=== PATIENT | male | born 1940 | race Caucasian/White ===

== ENCOUNTER 2016-06-25 12:38 | Emergency (ER) | payer MEDICARE ==
[~2016-06-25 12:38] MED LIST: ASPI81TA82 PO; BP med; CHOL50006 PO; CYCL1PAK PO; GABA100C4 PO; LORTA10 PO; METH1TAB29 PO; PLAV75TA PO
[2016-06-25 12:45] VITALS: BP 191/113; PULSE 72; RESP 20; TEMP 97.9; O2SAT 98
[2016-06-25] MEDS ORDERED: PLAV75TA29 PO (12:50)
[2016-06-25] MEDS ORDERED: UNKNOWN MEDS (12:50)
[2016-06-25] MEDS ORDERED: LISI2.5T3 PO (12:50)
--- NOTE | 2016-06-25 12:57 | PD ---
HPI Chief Complaint: Chest Pain Time Seen by Provider: 12:53 Travel History International Travel<30 days: No Contact w/Intl Traveler<30days: No Traveled to known affect area: No History of Present Illness HPI This is a 76-year-old male who presents to the emergency department with chest pain that started at 2 AM waking him up from sleep described as a sharp stabbing pain in the right chest radiating to the back right next to his scapula associated with pain in his right neck. He says at that time he had the pain he was unable to move his right arm. Symptoms have been constant and he tried not to move throughout the night in order to alleviate them. He says they get worse when he moves from [id number] and when he moves his neck. He denies any associated shortness of breath, nausea or diaphoresis. He reports his pain is still an 8 out of 10. He's never had pain like this before. He does have a history of heart disease and has one stent. He says this feels nothing like his prior heart attack. He does also have a history of surgery on his neck and back but he similarly says this doesn't feel like musculoskeletal pain to him. PFSH Past Medical History Hx Anticoagulant Therapy: Yes (PLAVIX) Arthritis: Yes Heart Rhythm Problems: Yes Cancer: Yes (PROSTAT,SKIN) Cardiac Catheterization: Yes Cardiovascular Problems: Yes High Cholesterol: Yes Chemotherapy: No Chest Pain: Yes Diabetes: No Diminished Hearing: Yes Endocrine: No Genitourinary: Yes (FREQUENT VOIDING.) Hypertension: Yes Immune Disorder: No Implanted Vascular Access Dvce: Yes Kidney Stones: No Musculoskeletal: Yes Neurologic: No Psychiatric: No Reproductive: No Respiratory: No Immunizations Current: Yes (shingles vaccine) Myocardial Infarction: Yes (2002) Radiation Therapy: No Sickle Cell Disease: No Past Surgical History Abdominal Surgery: Yes (APPI) Appendectomy: Yes Body Medical Devices: CARDIAC STENT Coronary Stent: Yes (2002) Genitourinary Surgery: Yes (BLOOD CLOT REMOVED FROM BLADDER, STENT PLACED.) Prostatectomy: Yes Other Surgery: Yes (HERNIA REPAIR X 2.) Social History Alcohol Use: Yes (occasionally) Tobacco Use: Yes (2 cigars per day) Substance Use: No Allergies-Medications (Allergen,Severity, Reaction): Coded Allergies: UNOBTAINABLE (Unverified , 3/16/17) PT STATES THAT HE HAS ALLERGIES BUT IS UNABLE TO RECALL AND DOES NOT HAVE A LIST Reported Meds & Prescriptions Reported Meds & Active Scripts Active Reported [Unknown Meds] Unknown Dose Lisinopril 2.5 Mg Tab Unknown Dose PO DAILY Plavix (Clopidogrel Bisulfate) 75 Mg Tab Unknown Dose PO DAILY Review of Systems Except as stated in HPI: all other systems reviewed are Neg Physical Exam Narrative GENERAL:Well appearing, no acute distress SKIN: Warm and dry. HEAD: Atraumatic. Normocephalic. EYES: Pupils equal and round. No injection or drainage. ENT: Moist mucous membranes NECK: Trachea midline. CARDIOVASCULAR: Regular rate and rhythm. No murmur appreciated. RESPIRATORY: Clear to auscultation. Breath sounds equal bilaterally. GASTROINTESTINAL: Abdomen soft, non-tender, nondistended. MUSCULOSKELETAL: No obvious deformities. NEUROLOGICAL: Awake and alert. No obvious cranial nerve deficits. Moving all extremities. PSYCHIATRIC: Appropriate mood and affect; insight and judgment normal. Data Data Last Documented VS Vital Signs Date Time Temp Pulse Resp B/P Pulse Ox O2 Delivery O2 Flow Rate FiO2 06/25/16 14:23 81 20 154/97 95 Nasal Cannula 06/25/16 13:22 2 06/25/16 12:45 97.9 Orders Electrocardiogram (06/25/16 12:53) Complete Blood Count With Diff (06/25/16 12:53) Comprehensive Metabolic Panel (06/25/16 12:53) Troponin I (06/25/16 12:53) Chest, Single Ap (06/25/16 12:53) Ecg Monitoring (06/25/16 12:53) Bilateral Bp Monitoring (06/25/16 12:53) Iv Access Insert/Monitor (06/25/16 12:53) Oximetry (06/25/16 12:53) Oxygen Administration (06/25/16 12:53) Sodium Chloride 0.9% Flush (Ns Flush) (06/25/16 13:00) Morphine Inj (Morphine Inj) (06/25/16 13:00) Labetalol Inj (Trandate Inj) (06/25/16 13:00) Cta Thor Abd Aorta W Iv C W3d (06/25/16 ) Iohexol 350 Inj (Omnipaque 350 Inj) (06/25/16 14:18) Labs Laboratory Tests Test 06/25/16 13:00 White Blood Count 9.8 TH/MM3 Red Blood Count 4.98 MIL/MM3 Hemoglobin 15.3 GM/DL Hematocrit 45.8 % Mean Corpuscular Volume 91.9 FL Mean Corpuscular Hemoglobin 30.8 PG Mean Corpuscular Hemoglobin 33.5 % Concent Red Cell Distribution Width 12.5 % Platelet Count 228 TH/MM3 Mean Platelet Volume 8.0 FL Neutrophils (%) (Auto) 70.7 % Lymphocytes (%) (Auto) 15.3 % Monocytes (%) (Auto) 10.9 % Eosinophils (%) (Auto) 1.5 % Basophils (%) (Auto) 1.6 % Neutrophils # (Auto) 6.9 TH/MM3 Lymphocytes # (Auto) 1.5 TH/MM3 Monocytes # (Auto) 1.1 TH/MM3 Eosinophils # (Auto) 0.1 TH/MM3 Basophils # (Auto) 0.2 TH/MM3 CBC Comment DIFF FINAL Differential Comment Sodium Level 141 MEQ/L Potassium Level 4.5 MEQ/L Chloride Level 106 MEQ/L Carbon Dioxide Level 27.2 MEQ/L Anion Gap 8 MEQ/L Blood Urea Nitrogen 20 MG/DL Creatinine 1.00 MG/DL Estimat Glomerular Filtration 72 ML/MIN Rate Random Glucose 83 MG/DL Calcium Level 9.0 MG/DL Total Bilirubin 0.7 MG/DL Aspartate Amino Transf 25 U/L (AST/SGOT) Alanine Aminotransferase 48 U/L (ALT/SGPT) Alkaline Phosphatase 69 U/L Troponin I LESS THAN 0.02 NG/ML Total Protein 7.0 GM/DL Albumin 3.9 GM/DL MDM Medical Decision Making Medical Screen Exam Complete: Yes Emergency Medical Condition: Yes Interpretation(s) EKG: Normal sinus rhythm, ST depressions in the lateral leads, LVH No leukocytosis Electrolytes are reassuring Troponin is normal Chest x-ray: Compensated cardiomegaly Last 24 hours Impressions Chest X-Ray 06/25/16 1253 Signed Impressions: Service Date/Time: June 13:01 - CONCLUSION: Compensated cardiomegaly otherwise negative. Manuel Gilliland MD FACR Aorta CTA 06/25/16 0000 Signed Impressions: Service Date/Time: June 13:46 - CONCLUSION: Calcific atherosclerotic coronary artery disease. Cardiomegaly. Mild atherosclerotic disease of the thoracic and abdominal aorta without evidence of aneurysmal enlargement, dissection or ulceration. Simple hepatic cyst. No other significant abnormalities. Alejandro Leos MD Differential Diagnosis Myocardial infarction, aortic dissection, costochondritis, thoracic radiculopathy, cervical radiculopathy Narrative Course This is a 76-year-old male who has a history of coronary artery disease who presents to the emergency department with atypical pain on the right chest and right neck, worse with movement, with difficulty getting comfortable overnight. On a monitor and an IV was established. Vital signs demonstrated hypertension. He was given a dose of IV labetalol with improvement in his blood pressure. Labs are obtained which demonstrate a normal troponin. CT a was obtained given his description of weakness in his right upper extremity which demonstrates coronary artery disease and atherosclerosis of the thoracic and abdominal aorta but no aortic dissection. I had a long conversation with the patient. Given his history of coronary artery disease I offered him serial cardiac enzymes and risk stratification in the hospital. He really didn't want to stay. I explained to him that there is a small chance that were missing a heart attack. In my heart, I think this is very unlikely given the patient's pain is very positional and seems to be musculoskeletal. Additionally it started at 2 AM and has been constant since then so his troponin should be elevated by now. Patient elected to be discharged and follow-up with his primary care physician in [place] which I think is reasonable. Diagnosis Primary Impression: Atypical chest pain Patient Instructions: General Instructions Additional Instructions: f you develop severe chest pain, shortness of breath, sweating, lightheadedness , dizziness or difficulty breathing return to the emergency department immediately. Followup with your bunch maker once you get home in [place] without fail. Med/Other Pt SpecificInfo: Prescription(s) given Scripts Tramadol 50 Mg Tab50 Mg PO Q6H PRN (PAIN) #10 TAB Prov:Radha Brambila MD 06/25/16 Disposition: 01 DISCHARGE HOME Condition: Stable Radha Brambila MD Jun 25, 2016 12:57
[2016-06-25] MEDS ORDERED: LABETALOL HCL 100 MG/20 ML VIAL IV PUSH ONE (13:00)
[2016-06-25] MEDS ORDERED: MORPHINE SULFATE 8 MG/ML INJ IV PUSH ONE (13:00)
[2016-06-25] MEDS ORDERED: SODIUM CHLORIDE 0.9% FLUSH 5 ML FLUSH IVF PRN (13:00)
[2016-06-25 13:13] LABS: AUTOMATED NEUTROPHIL # 6.9 TH/MM3 (1.8-7.7); BASOPHIL # 0.2 TH/MM3 (0-0.2); BASOPHIL % 1.6 % (0.0-2.0); EOSINOPHIL # 0.1 TH/MM3 (0-0.4); EOSINOPHIL % 1.5 % (0.0-4.0); HEMATOCRIT 45.8 % (39.0-51.0); HEMO FLAGS DIFF FINAL; LYMPH % 15.3 % (9.0-44.0); LYMPHOCYTE # 1.5 TH/MM3 (1.0-4.8); MEAN CELL VOLUME 91.9 FL (80.0-100.0); MEAN CORPUSCULAR HEMOGLOBIN 30.8 PG (27.0-34.0); MEAN CORPUSCULAR HGB CONC 33.5 % (32.0-36.0); MONO % 10.9 % (0.0-8.0); NEUT % 70.7 % (16.0-70.0); PLATELET COUNT 228 TH/MM3 (150-450); RED BLOOD COUNT 4.98 MIL/MM3 (4.50-5.90); RED CELL DISTRIBUTION WIDTH 12.5 % (11.6-17.2); WHITE BLOOD COUNT 9.8 TH/MM3 (4.0-11.0)
[2016-06-25 13:14] VITALS: O2SAT 98
--- NOTE | 2016-06-25 13:14 | RADHPO ---
EXAM DATE/TIME: 06/25/2016 13:01 [facility] COMPARISON: No previous studies available for comparison. INDICATIONS : Chest pain. MEDICAL HISTORY : Myocardial infarction. Hypercholesterolemia. Hypertension. SURGICAL HISTORY : Cardiac stent, canvas cutter ENCOUNTER: Initial ACUITY: 1 day PAIN SCORE: 10/10 LOCATION: Bilateral chest FINDINGS: The lungs are clear. The heart is minimally enlarged. The pulmonary vascularity is normal. There is n o evidence for infiltrate or failure. The portion of the bony skeleton visualized is unremarkable. CONCLUSION: Compensated cardiomegaly otherwise negative. Manuel Gilliland MD FACR on June 25, 2016 at 13:12 Board Certified Radiologist. This report was verified electronically.
[2016-06-25 13:19] LABS: CHLORIDE 106 MEQ/L (98-107); POTASSIUM 4.5 MEQ/L (3.5-5.1); SODIUM (NA) 141 MEQ/L (136-145)
[2016-06-25 13:22] VITALS: BP_SYST 147; BP_SYST 177; BP_DIAS 101; BP_DIAS 103; PULSE 65; RESP 20; O2SAT 96
[2016-06-25 13:22] LABS: ANION GAP 8 MEQ/L (5-15); BICARBONATE 27.2 MEQ/L (21.0-32.0); BLOOD UREA NITROGEN 20 MG/DL (7-18)
[2016-06-25 13:25] LABS: ALT (GPT) 48 U/L (12-78); AST (GOT) 25 U/L (15-37); GLOMERULAR FILTRATION RATE 72 ML/MIN (>89)
[2016-06-25 13:27] LABS: TOTAL BILIRUBIN ADULT 0.7 MG/DL (0.2-1.0)
[2016-06-25 13:28] LABS: ALKALINE PHOSPHATASE 69 U/L (45-117)
[2016-06-25] MEDS ORDERED: IOHEXOL 350 MG/ML 10 ML VIAL (for RAD DIAG) IV ONE (14:18)
[2016-06-25 14:23] VITALS: BP 154/97; PULSE 81; RESP 20; O2SAT 95
--- NOTE | 2016-06-25 14:51 | RADHPO ---
EXAM DATE/TIME: 06/25/2016 13:46 [facility] COMPARISON: No previous studies available for comparison. INDICATIONS : Right chest and upper back pain. IV CONTRAST: 85 cc Omnipaque 350 (iohexol) IV RADIATION DOSE: 19.86 CTDIvol (mGy) MEDICAL HISTORY : Myocardial infarction. Carcinoma, prostate. Hypertension. SURGICAL HISTORY : Coronary artery stent. Appendectomy.Hernia repair. ENCOUNTER: Initial ACUITY: 1 day PAIN SCALE: 8/10 LOCATION: Right chest TECHNIQUE: Volumetric scanning was performed using a multi-row detector CT scanner. The data was post processed with a variety of visualization algorithms including full volume maximum intensity pr ojection, multi-planar sliding thin slab reformation, curved planar reformation, and surface renderin g techniques. Using automated exposure control and adjustment of the mA and/or kV according to patie nt size, radiation dose was kept as low as reasonably achievable to obtain optimal diagnostic quality images. FINDINGS: LUNGS: There is no consolidation or pneumothorax. No concerning pulmonary nodule is visualized. No pleural fluid is present. MEDIASTINUM: No abnormally enlarged lymph nodes by CT criteria. No axillary or hilar abnormalitie s are identified. Significant calcification is noted in the proximal coronary arteries. Heart is mild ly enlarged. ABDOMEN: The liver and spleen are free of suspicious focal defects. A simple cyst is identified i n the right hepatic lobe. The gallbladder and pancreas demonstrate no abnormality. The adrenal glands are normal. The kidneys demonstrate no evidence of solid renal mass or hydronephrosis. No free fluid or abdominal masses are identified. No para-aortic adenopathy is seen. PELVIS: No evidence of free fluid or pelvic mass. No abnormally enlarged inguinal or retroperiton eal lymph nodes are present. The bladder is unremarkable. THORACIC AORTA: The thoracic aortic root is normal with normal branching of the great vessels. There is no evidence of aneurysm or dissection. ABDOMINAL AORTA: The aorta is normal in caliber without aneurysm or dissection. The renal arteri es are patent bilaterally. The proximal celiac and superior mesenteric arteries are patent and ena l in diameter. PELVIC VESSELS: The internal iliac and external iliac vessels are patent without aneurysm or sten osis. Degenerative disc disease with endplate sclerosis and marginal spondylosis is noted throughout the th oracic and lumbar spine. CONCLUSION: Calcific atherosclerotic coronary artery disease. Cardiomegaly. Mild atherosclerotic disease of the thoracic and abdominal aorta without evidence of aneurysmal enlar gement, dissection or ulceration. Simple hepatic cyst. No other significant abnormalities. Alejandro Leos MD on June 25, 2016 at 14:27 Board Certified Radiologist. This report was verified electronically.
[2016-06-25] MEDS ORDERED: TRAM50TA PO (15:07)
--- NOTE | 2016-06-26 15:45 | EKG ---
Date Performed: 06/25/2016 Time Performed: 12:38:04 PTAGE: 76 years EKG: Sinus bradycardia with PAC(s). Possible left anterior fascicular block Left ventricular hyp ertrophy Lateral ST-T changes are probably due to ventricular hypertrophy Abnormal ECG PREVIOUS TRACING : 06/19/2013 18.54 Compared to prior tracing no significant change DOCTOR: Sue Santiago Interpretating Date/Time 06/26/2016 15:44:33
== END 2016-06-25 15:23 | disposition home or self-care (01) ==
LOC: PHED 12:38
DX: R07.9 Chest pain, unspecified (principal); I10 Essential (primary) hypertension; I25.2 Old myocardial infarction; Z95.5 Presence of coronary angioplasty implant and graft; Z72.0 Tobacco use; I51.7 Cardiomegaly
CPT/HCPCS: 71010; 71275; 74174; 80053; 84484; 85025; 93005; 96374; 96375; 99285; J2270; Q9967